=== PATIENT | female | born 1975 | race African-American/Black ===

== ENCOUNTER 2019-12-26 03:50 | Inpatient (IN) ==
[2019-12-26] MEDS: DOPamine 800 MG/250 ML PREMIX IV PRN ×2 (08:15→15:28)
[2019-12-26] MEDS: NOREPINEPHRINE 8 MG in SODIUM CHLORIDE 0.9% 242 ML IV PRN ×3 (08:15→18:01)
[2019-12-26] MEDS ORDERED: NOREPINEPHRINE 4 MG/4 ML VIAL IV ONE (08:28)
[2019-12-26] MEDS ORDERED: DOPamine 800 MG/250 ML PREMIX IV ONE (08:28)
[2019-12-26] MEDS ORDERED: PANTOPRAZOLE 40 MG VIAL IV SCH (08:30)
[2019-12-26 08:59] LABS: INR 3.9; Partial Thromboplastin Time 40.4 SECS (23.9-33.8)
[2019-12-26] MEDS ORDERED: SODIUM CHLORIDE 0.9% 1,000 ML IV PRN (09:10)
[2019-12-26 09:11] LABS: Basophils % 0.1 % (0.0-0.8); Hematocrit 37.6 VOL% (35.7-47.0); Hemoglobin 10.1 GM/DL (12.0-16.0); Immature Granulocytes % 1.3 %; Immature Granulocytes Absolute 0.15 #; Lymphocytes # 1.4 10*3/uL (1.4-4.0); Lymphocytes % 12.5 % (21.3-54.2); Mean Corpuscular HGB Conc 26.9 GM/DL (32-36); Mean Corpuscular Volume 102.7 FL (87-102); Mean Platelet Volume 11.8 FL (9.6-12.0); NRBC # 0.17 10*3/uL; Neutrophils % 84.1 % (38.7-73.9); PT Patient Result 38.5 SECS (9.8-11.9); Platelet Count 250 T/CUMM (130-400); Red Blood Count 3.66 MC/CUMM (3.8-5.5); Red Cell Distribution Width 15.5 % (9.3-17.3); White Blood Count 11.5 T/CUMM (4-12)
[2019-12-26 09:16] LABS: Band Neutrophils 16 % (0-10); Lymphocytes 15 % (20-55); Metamyelocytes 2 %; Nucleated Red Blood Cells 3 (0-5); Platelet Estimate Normal; Segmented Neutrophils 67 % (50-85); Total Cells Counted 100
[2019-12-26 09:17] LABS: ABG Base Excess -20.5 MMOL/L (-2.5-2.5); ABG HCO3 9.5 MMOL/L (20-26); ABG Oxygen Saturation 97.6 % (95-100); ABG PCO2 32.5 MM HG (35-48); ABG TCO2 8.8 MMOL/L (23-27)
[2019-12-26 09:17] LABS: Anisocytosis 1+; Macrocytosis 1+
[2019-12-26 09:21] LABS: ABG PH 7.055 (7.35-7.45)
[2019-12-26 09:21] LABS: Salicylate < 2.8 MG/DL (2.8-20)
[2019-12-26 09:35] LABS: Alanine Aminotransferase 5037 U/L (13-56); Albumin 1.7 G/DL (3.4-5.0); Alkaline Phosphatase 206 U/L (45-117); Aspartate Amino Transferase 14028 U/L (0-37); Blood Urea Nitrogen 22 MG/DL (7-18); Calcium 6.9 MG/DL (8.5-10.1); Estimated Glom Filtration Rate 24 ML/MIN; Glucose 436 MG/DL (74-106); Osmolality,Calculated 287.4 MOS/KG (273-304); Total Protein 5.4 G/DL (6.4-8.3)
[2019-12-26] MEDS ORDERED: GLUCAGON 1 MG VIAL IM PRN (09:39)
[2019-12-26] MEDS ORDERED: SODIUM ACETATE 150 MEQ in STERILE WATER INJ 1,000 ML IV SCH (10:00)
[2019-12-26] MEDS: SODIUM BICARB INJ 150 MEQ in STERILE WATER INJ 850 ML IV SCH ×2 (10:28→18:01)
[2019-12-26] MEDS: PANTOPRAZOLE 40 MG VIAL IV SCH ×2 (11:54→21:46)
[2019-12-26 13:05] LABS: Hepatitis B Surface Ag Quant 0.31 Index; Hepatitis B Surface Ag Result Negative (Negative); Hepatitis C Virus Ab Quant 0.13 Index; Hepatitis C Virus Ab Result Negative (Negative)
[2019-12-26 13:29] LABS: Hematocrit 34.9 VOL% (35.7-47.0); Hemoglobin 9.3 GM/DL (12.0-16.0)
[2019-12-26] MEDS: PIPERACILLIN/TAZOBACTAM 3,375 MG in SODIUM CHLORIDE 0.9% 100 ML IV SCH (15:27)
[2019-12-26] MEDS: HYDROCORTISONE 100 MG VIAL IV SCH ×2 (15:27→21:47)
[2019-12-26 18:17] LABS: Osmolality,Calculated 286.7 MOS/KG (273-304)
[2019-12-26 18:56] VITALS: BP 152/54
[2019-12-26 18:58] LABS: INR 3.9; PT Patient Result 39.1 SECS (9.8-11.9); Partial Thromboplastin Time 41.5 SECS (23.9-33.8)
[2019-12-26 21:53] LABS: Hemoglobin 9.1 GM/DL (12.0-16.0)
[2019-12-27] MEDS: DOPamine 800 MG/250 ML PREMIX IV PRN ×2 (00:05→08:55)
[2019-12-27 00:31] LABS: Calcium 7.1 MG/DL (8.5-10.1); Osmolality,Calculated 277.8 MOS/KG (273-304)
[2019-12-27 00:45] LABS: Hematocrit 34.1 VOL% (35.7-47.0); Hemoglobin 9.1 GM/DL (12.0-16.0)
[2019-12-27] MEDS: SODIUM BICARB INJ 150 MEQ in STERILE WATER INJ 850 ML IV SCH ×2 (01:06→07:38)
[2019-12-27] MEDS: PIPERACILLIN/TAZOBACTAM 3,375 MG in SODIUM CHLORIDE 0.9% 100 ML IV SCH (01:54)
[2019-12-27 04:29] LABS: ABG Base Excess -21.8 MMOL/L (-2.5-2.5); ABG HCO3 7.6 MMOL/L (20-26); ABG Oxygen Saturation 90.5 % (95-100); ABG PCO2 29.8 MM HG (35-48); ABG PO2 88.7 MM HG (80-95); ABG TCO2 8.5 MMOL/L (23-27)
[2019-12-27] MEDS: NOREPINEPHRINE 8 MG in SODIUM CHLORIDE 0.9% 242 ML IV PRN ×2 (04:30→09:37)
[2019-12-27 04:32] LABS: ABG PH 7.024 (7.35-7.45)
[2019-12-27 04:43] LABS: Hematocrit 32.2 VOL% (35.7-47.0); Hemoglobin 8.4 GM/DL (12.0-16.0)
[2019-12-27 05:05] LABS: Calcium 7.4 MG/DL (8.5-10.1); Osmolality,Calculated 277.5 MOS/KG (273-304)
[2019-12-27] MEDS ORDERED: SODIUM BICARBONATE 50 MEQ/50 ML VIAL IV ONE ×2 (05:19→05:20)
[2019-12-27] MEDS: DEXTROSE 10% 250 ML BAG IV PRN ×2 (05:25→05:50)
[2019-12-27 05:31] LABS: PT Patient Result 53.1 SECS (9.8-11.9)
[2019-12-27 05:33] LABS: INR 5.4
[2019-12-27] MEDS: HYDROCORTISONE 100 MG VIAL IV SCH (05:47)
[2019-12-27] MEDS ORDERED: DEXTROSE 50% 25 GM/50 ML SYRINGE IV PRN (06:11)
[2019-12-27] MEDS ORDERED: DEXTROSE 10% 1,000 ML IV SCH (06:30)
[2019-12-27] MEDS: PANTOPRAZOLE 40 MG VIAL IV SCH (08:33)
[2019-12-27 09:09] LABS: Albumin 1.7 G/DL (3.4-5.0); Calcium 7.2 MG/DL (8.5-10.1); Osmolality,Calculated 276.5 MOS/KG (273-304); Total Protein 4.6 G/DL (6.4-8.3)
[2019-12-27] MEDS ORDERED: NOREPINEPHRINE 4 MG/4 ML VIAL IV ONE (09:32)
== END 2019-12-27 10:43 | disposition expired ==
LOC: SUATTDRO 08:15 → N.ICU 08:15
PROVIDERS: ADMIT Internal Medicine; ATTEND Internal Medicine